=== PATIENT | male | born 1995 | race Caucasian/White ===

== ENCOUNTER 2017-09-05 17:41 | Emergency (ER) | payer OTHER, MEDICAID ==
[~2017-09-05] VITALS: Ht 177.8 cm; Wt 79.4 kg
[~2017-09-05 17:41] MED LIST: ALBUTEROL INHAL17 GM IH; AZITHROMYCIN 2250 MG PO; NOHOMEMEDICATIONS; NORCO 5-325 TA1 EACH PO; PREDNISONE 20 M20 M1 PO
[2017-09-05 19:56] VITALS: BP 126/69
== END 2017-09-05 19:56 | disposition home or self-care (01) ==
LOC: M.ERS 17:41
DX: S01.112A Laceration without foreign body of left eyelid and periocular area, initial encounter (principal); S05.12XA Contusion of eyeball and orbital tissues, left eye, initial encounter; Z88.0 Allergy status to penicillin; W50.0XXA Accidental hit or strike by another person, initial encounter; Y93.62 Activity, american flag or touch football; Y92.89 Other specified places as the place of occurrence of the external cause; Y99.8 Other external cause status